=== PATIENT | female | born 1995 | race Two or more races ===

== ENCOUNTER 2022-08-11 17:46 | Emergency (ER) | payer SELFPAY ==
[~2022-08-11] VITALS: Ht 167.6 cm; Wt 93.0 kg
--- NOTE | 2022-08-11 19:00 | NUR ---
C/O LUQ ABDOMINAL PAIN X 2 DAYS. DENIES NAUSEA/VOMIT/DIARRHEA DENIES TRAUMA, pt aaox4, denies sob/cp. pending er provider colby
[2022-08-11] MEDS ORDERED: ONDANSETRON HCL/PF 4 MG/2 ML VIAL ONE (19:56)
[2022-08-11] MEDS ORDERED: ACETAMINOPHEN ES 500 MG TABLET ONE (19:56)
[2022-08-11] MEDS ORDERED: ONDANSETRON HCL/PF 4 MG/2 ML VIAL IVP ONE (20:00)
[2022-08-11] MEDS ORDERED: ACETAMINOPHEN ES 500 MG TABLET PO ONE (20:00)
[2022-08-11 20:07] LABS: CALCIUM, SERUM 9.6 mg/dL (8.5-10.1); CREATININE 0.8 mg/dL (0.6-1.3); POTASSIUM 4.3 mmol/L (3.5-5.1)
[2022-08-11] MEDS ORDERED: diphenhydrAMINE HCL 25 MG CAPSULE ONE (20:20)
[2022-08-11 20:26] LABS: BILIRUBIN,URINE NEGATIVE (NEGATIVE); LEUKOCYTE ESTERASE ,URINE NEGATIVE (NEGATIVE); NITRITE, URINE NEGATIVE (NEGATIVE); PH,URINE 5.5 (5.0-8.0); PROTEIN,URINE NEGATIVE (NEGATIVE); UGLUCOSE NEGATIVE (NEGATIVE); UROBILINOGEN,URINE 0.2 EU/dL (0.2)
[2022-08-11 20:27] LABS: ALBUMIN 4.1 g/dL (3.4-5.0); BILIRUBIN,DIRECT 0.3 mg/dL (0.0-0.2); BILIRUBIN,TOTAL 1.3 mg/dL (0.2-1.0); TOTAL PROTEIN, SERUM 8.2 g/dL (6.4-8.2)
[2022-08-11 20:30] LABS: COLOR,URINE STRAW (YELLOW)
[2022-08-11 20:40] LABS: BASOPHILS % (AUTO) 0.4 % (0.0-2.0); EOSINOPHILS % (AUTO) 1.9 % (0.0-6.0); HEMATOCRIT 42 % (33-45); HEMOGLOBIN 13.8 g/dL (11.5-14.8); LYMPHOCYTES # (AUTO) 1.9 K/uL (0.8-4.8); LYMPHOCYTES % (AUTO) 32.3 % (20.0-44.0); MEAN CORPUSCULAR HGB CONC 33 g/dl (31.0-36.0); MEAN CORPUSCULAR VOLUME 81 fL (82-100); MONOCYTES # (AUTO) 0.4 K/uL (0.1-1.30); MONOCYTES % (AUTO) 7.4 % (2.0-12.0); NEUTROPHILS # (AUTO) 3.4 K/uL (1.8-8.9); PLATELET COUNT (AUTO) 231 K/uL (150-450); RED BLOOD CELL COUNT(AUTO) 5.14 MIL/uL (4.0-5.2); WHITE BLOOD COUNT (AUTO) 5.8 K/uL (4.3-11.0)
[2022-08-11] MEDS ORDERED: diphenhydrAMINE HCL 25 MG CAPSULE PO ONE (21:00)
[2022-08-11 21:15] LABS: BACTERIA,URINE Many /HPF (None Seen); SQUAMOUS EPITHELIAL CELL,UR Many /HPF (None Seen); WBC,URINE 0-2 /HPF (0-3)
[2022-08-11] MEDS ORDERED: OMEP20CA15 PO (22:45)
--- NOTE | 2022-08-11 22:50 | NUR ---
Patient discharged to home in stable condition. Written and verbal after care instructions given. Patient verbalizes understanding of instruction. IV removed. Catheter intact and site benign. Pressure and 4x4 applied to site. No bleeding noted.
[2022-08-11 22:54] VITALS: BP 125/62
== END 2022-08-11 22:54 | disposition home or self-care (01) ==
LOC: ER 17:53
DX: R10.12 Left upper quadrant pain (principal); Z88.8 Allergy status to other drugs, medicaments and biological substances; Z60.2 Problems related to living alone
CPT/HCPCS: 99285; 74176; 96374; 85025; 80048; 87086; 83690; 80076; 84703; 81001; 36415; J2405; Q0163

== ENCOUNTER 2022-08-15 19:57 | Emergency (ER) | payer MEDICAID, OTHER ==
[~2022-08-15] VITALS: Ht 167.6 cm; Wt 93.0 kg
[~2022-08-15 19:57] MED LIST: OMEP20CA15 PO
[2022-08-15 20:50] VITALS: BP 110/80
--- NOTE | 2022-08-15 20:50 | NUR ---
Bibself from home c/o mouth swollen, had tooth extraction 5 days ago 03/23 ps. Pt A/ox4. Tolerating R/A well with no resp distress.
--- NOTE | 2022-08-15 21:13 | NUR ---
DR. ALANNA GORMAN WITH PT FOR EVAL
[2022-08-15] MEDS ORDERED: CLIN300C12 PO (21:23)
[2022-08-15] MEDS ORDERED: CLINDAMYCIN HCL 150 MG CAPSULE ONE (21:30)
[2022-08-15] MEDS ORDERED: ACETAMINOPHEN ES 500 MG TABLET ONE (21:30)
[2022-08-15] MEDS ORDERED: ACETAMINOPHEN ES 500 MG TABLET PO ONE (21:30)
[2022-08-15] MEDS ORDERED: CLINDAMYCIN HCL 150 MG CAPSULE PO ONE (21:30)
== END 2022-08-15 21:40 | disposition home or self-care (01) ==
LOC: ER 20:11
DX: M26.69 Other specified disorders of temporomandibular joint (principal); Z88.8 Allergy status to other drugs, medicaments and biological substances; Z60.2 Problems related to living alone

== ENCOUNTER 2022-08-24 22:02 | Emergency (ER) | payer MEDICAID ==
[~2022-08-24] VITALS: Ht 167.6 cm; Wt 82.1 kg
[~2022-08-24 22:02] MED LIST changes: +CLIN300C12 PO
--- NOTE | 2022-08-24 22:58 | NUR ---
RECEIVED 27 YRS OLD FEMALE CAME FROM HOME, C/O LEFT SIDED CHEST PAIN RADIATING TO LEFT ARM SINCE 2129
[2022-08-25 00:07] LABS: BASOPHILS # (AUTO) 0.1 K/uL (0.0-0.2); BASOPHILS % (AUTO) 0.7 % (0.0-2.0); EOSINOPHILS % (AUTO) 2.1 % (0.0-6.0); HEMATOCRIT 43 % (33-45); HEMOGLOBIN 13.7 g/dL (11.5-14.8); LYMPHOCYTES # (AUTO) 2.4 K/uL (0.8-4.8); LYMPHOCYTES % (AUTO) 33.6 % (20.0-44.0); MEAN CORPUSCULAR HGB CONC 32 g/dl (31.0-36.0); MEAN CORPUSCULAR VOLUME 83 fL (82-100); MONOCYTES # (AUTO) 0.6 K/uL (0.1-1.30); MONOCYTES % (AUTO) 8.5 % (2.0-12.0); NEUTROPHILS # (AUTO) 3.9 K/uL (1.8-8.9); NEUTROPHILS % (AUTO) 55.1 % (43.0-81.0); PLATELET COUNT (AUTO) 302 K/uL (150-450); RED BLOOD CELL COUNT(AUTO) 5.18 MIL/uL (4.0-5.2); WHITE BLOOD COUNT (AUTO) 7.1 K/uL (4.3-11.0)
[2022-08-25 00:25] LABS: CALCIUM, SERUM 9.7 mg/dL (8.5-10.1); CARBON DIOXIDE 32 mmol/L (21-32); CHLORIDE 102 mmol/L (98-107); CREATININE 0.9 mg/dL (0.6-1.3); GLUCOSE 82 mg/dL (74-106); POTASSIUM 4.2 mmol/L (3.5-5.1); SODIUM SERUM 138 mmol/L (136-145); UREA NITROGEN, BLOOD 4 mg/dL (7-18)
--- NOTE | 2022-08-25 01:52 | NUR ---
Patient discharged to home in stable condition. Written and verbal after care instructions given. Patient verbalizes understanding of instruction. BOYFRIEND AT BEDSIDE
[2022-08-25 03:23] VITALS: BP 135/80
== END 2022-08-25 02:00 | disposition home or self-care (01) ==
LOC: ER 22:05
DX: R07.89 Other chest pain (principal); Z88.0 Allergy status to penicillin; Z88.1 Allergy status to other antibiotic agents; Z91.040 Latex allergy status; Z88.5 Allergy status to narcotic agent; Z60.2 Problems related to living alone; Z79.899 Other long term (current) drug therapy
CPT/HCPCS: 36415; 71045-TC; 80048-TC; 84484-TC; 85025-TC; 85378-TC